=== PATIENT | male | born 1950 | race Caucasian/White ===

== ENCOUNTER 2017-08-03 22:36 | Emergency (ER) | payer MEDICARE, BC, OTHER ==
[2017-08-03 23:11] VITALS: BP 176/85
--- NOTE | 2017-08-04 01:32 | ER Document Report ---
ED Wound - General Chief Complaint: Laceration Stated Complaint: HEAD LACERATION Time Seen by Provider: 08/04/17 01:00 Mode of Arrival: Ambulatory Information source: Patient TRAVEL OUTSIDE OF THE [place] IN LAST 30 DAYS: No - HPI Patient complains to provider of: Abrasion Occurred: This afternoon Notes: Patient is here with complaints of wound that will not quit bleeding. The patient states that he was here looking at houses and was in an attic looking through the attic of the house. When he was coming out of the attic he did not duck enough and hit his head on a door frame. States that he has an abrasion to the top of his head that he cannot get to quit bleeding. He is on Plavix. He denies any significant head injury. He denies any headache. He denies any blurred or loss vision. He denies any unilateral numbness, tingling, weakness. He denies any neck or back pain. No fevers. No nausea, vomiting, diarrhea. No other injuries and no other complaints. - Related Data Allergies/Adverse Reactions: levofloxacin Allergy (Verified 08/03/17 22:38) Penicillins Allergy (Verified 08/03/17 22:38) Sakihek-Ohp-Cqm Reductase Inhibitor Allergy (Verified 08/03/17 22:38) Past Medical History - Social History Smoking Status: Unknown if Ever Smoked Family History: Reviewed & Not Pertinent Patient has suicidal ideation: No Patient has homicidal ideation: No Renal/ Medical History: Denies: Hx Peritoneal Dialysis Review of Systems - Review of Systems -: Yes All other systems reviewed and negative Physical Exam - Vital signs Vitals: Temp Pulse Resp BP Pulse Ox 99.0 F 61 18 176/85 H 97 08/03/17 23:06 08/03/17 23:06 08/03/17 23:06 08/03/17 23:06 08/03/17 23:06 - Notes Notes: GENERAL: alert, cooperative, nontoxic, no distress. HEAD: normocephalic, superficial abrasion to the vertex of the scalp. This wound is noted to be slightly oozing some blood. No significant bleeding. No laceration. No redness. No drainage. EYES: conjunctiva pink without discharge, no external redness or swelling. Pupils are equal, round, reactive to light. EARS: no external swelling, no external redness NOSE: atraumatic, no external swelling MOUTH/THROAT: mucous membranes moist and pink, posterior pharynx without erythema, swelling, exudate. No trismus or drooling. NECK: soft, supple, full range of motion, no meningismus. CHEST: no distress, lungs clear and equal throughout. No wheezing, rales, rhonchi. CARDIAC: regular rate and rhythm, no murmur, normal capillary refill, normal pulses. No peripheral edema noted. BACK: full range of motion, no CVA tenderness. EXTREMITIES: full range of motion of all extremities. No redness, no swelling. NEURO: alert and oriented x 3, cranial nerves II through XII are grossly intact. Upper and lower extremities are equal throughout. Normal sensation. No focal deficits, full range of motion of all extremities. normal finger to nose. PYSCH: appropriate mood, affect. Patient is cooperative. SKIN: pink, warm, dry, no rash. Course - Re-evaluation Re-evalutation: 08/04/17 01:59 The patient is nontoxic appearing with stable vitals. Is here with complaints of head injury that will not stop bleeding. He was walking out of an attic when he did not duck enough and hit his head on the door frame. This was not a significant injury there was no loss of consciousness and he denies any headache at this time. No numbness, tingling, weakness. He is on Plavix. He has a nonfocal neurological exam. Is very unlikely with his minor injury, lack of LOC, lack of severe headache with a nonfocal exam that he has a significant intracranial hemorrhage, and therefore no CT is needed at this time. Patient had quick clot dressing applied to the head. We were able to get the wound to stop bleeding and the patient was discharged home. He is instructed to follow- up for any worsening bleeding, severe headache, blurred or loss vision, persistent vomiting, numbness, tingling, weakness, or for any further concerns. The patient is noted to have elevated blood pressure during today's emergency department visit. The patient was informed of this finding. The patient was instructed that this may be related to pre-hypertension and requires further evaluation with a primary care provider. The patient has no hypertensive symptoms at this time. The patient's emergency department workup and current diagnosis were explained to the patient and or family. Follow-up instructions were provided. Medications if prescribed were discussed. Instructions for when to return to the emergency department including specific worrisome symptoms were discussed with the patient and/or family. - Vital Signs Vital signs: Temp Pulse Resp BP Pulse Ox 99.0 F 61 18 176/85 H 97 08/03/17 23:06 08/03/17 23:06 08/03/17 23:06 08/03/17 23:06 08/03/17 23:06 Discharge - Discharge Clinical Impression: Scalp abrasion Qualifiers: Encounter type: initial encounter Qualified Code(s): S00.01XA - Abrasion of scalp, initial encounter Condition: Stable Disposition: HOME, SELF-CARE Instructions: Laceration Care ([facility]) Additional Instructions: Keep wound clean and dry. Follow-up for a wound that will not put bleeding, redness, fever, drainage, severe headache, blurred or loss vision, persistent vomiting, or for any further concerns. The patient is noted to have elevated blood pressure during today's emergency department visit. The patient was informed of this finding. The patient was instructed that this may be related to pre-hypertension and requires further evaluation with a primary care provider. The patient has no hypertensive symptoms at this time. The patient's emergency department workup and current diagnosis were explained to the patient and or family. Follow-up instructions were provided. Medications if prescribed were discussed. Instructions for when to return to the emergency department including specific worrisome symptoms were discussed with the patient and/or family. Forms: Elevated Blood Pressure, Smoking Cessation Education Referrals: [facility] [Provider Group] - Follow up as needed
== END 2017-08-04 01:40 | disposition home or self-care (01) ==
LOC: ER 22:36
DX: S00.01XA Abrasion of scalp, initial encounter (principal); W22.09XA Striking against other stationary object, initial encounter; Y93.89 Activity, other specified; Y92.008 Other place in unspecified non-institutional (private) residence as the place of occurrence of the external cause; Z79.02 Long term (current) use of antithrombotics/antiplatelets; R03.0 Elevated blood-pressure reading, without diagnosis of hypertension; Z88.1 Allergy status to other antibiotic agents; Z88.0 Allergy status to penicillin; Z88.8 Allergy status to other drugs, medicaments and biological substances
CPT/HCPCS: 99282